=== PATIENT | female | born 1985 | race African-American/Black ===

== ENCOUNTER 2018-06-24 17:11 | Emergency (ER) | payer SELFPAY ==
[~2018-06-24] VITALS: Ht 170.2 cm; Wt 59.0 kg
--- NOTE | 2018-06-24 18:26 | Diagnostic Imaging Report ---
EXAMINATION: CHEST 2 VIEWS INDICATION: Cough. Fever COMPARISON: None FINDINGS: TUBES and LINES: None. LUNGS: Lungs are well inflated. Perihilar peribronchial hazy opacity could be due to bronchitis. There is no evidence of pneumonia or pulmonary edema. PLEURA: No pleural effusion or pneumothorax. HEART AND MEDIASTINUM: The cardiomediastinal silhouette is unremarkable. BONES AND SOFT TISSUES: No acute osseous lesion. Soft tissues are unremarkable. UPPER ABDOMEN: No free air under the diaphragm. IMPRESSION: Perihilar peribronchial hazy opacity could be due to bronchitis. Signed by: Dr. Johnny Smyth M.D. on 06/24/2018 6:23 PM
[2018-06-24] MEDS ORDERED: AZITHROMYCIN250 MG PO (20:02)
== END 2018-06-24 20:35 | disposition home or self-care (01) ==
LOC: ER 17:11
DX: R05 Cough (principal); J20.9 Acute bronchitis, unspecified; F17.210 Nicotine dependence, cigarettes, uncomplicated
CPT/HCPCS: 71046; 87400; 99283

== ENCOUNTER 2019-03-08 21:42 | Emergency (ER) | payer OTHER ==
[~2019-03-08] VITALS: Ht 170.2 cm; Wt 59.0 kg
[~2019-03-08 21:42] MED LIST: AZITHROMYCIN250 MG PO
--- OUTSIDE RECORDS SUMMARY | 2019-03-08 21:45 | XMS REPORT ---
Author Author [facility] Address Unknown Phone Unavailable Care Team Providers Care Photovoltaic Technician Name Role Phone Dilshad LYLES Unavailable Unavailable Payers Payer Name Policy Type Policy Number Effective Date Expiration Date Problems This patient has no known problems. Allergies, Adverse Reactions, Alerts Allergy Name Allergy Type Status Severity Reaction(s) Onset Date Inactive Date Treating Clinician Comments No Known Allergies DA Active U 2018-11-05 00:00:00 No Known Allergies DA Active U 2015-10-09 00:00:00 Medications This patient has no known medications. Results Test Description Test Time Test Comments Text Results Atomic Results Result Comments HCG SERUM BETA 2018-12-26 16:02:00 HCG SERUM BETA (test code=HCG) 865934.0 mIU/mL 0-3 Interfering substances present in the serum of somepatients may cause a false-positive result in this assay.Questionable elevations in serum hCG should be confirmedwith a urine hCG. Suspected Trophoblastic Neoplasms shouldnot be diagnosed based on serun hCG/beta hCG alone. Theymust be confirmed by clinical history and tissue diagnosis.INTERPRETATION:B-HCG LEVELS <5 SHOULD BE CONSIDERED "NEGATIVE." *WHEN BODERLINE RESULTS ARE ENCOUNTERED,PATIENT SAMPLESSHOULD BE REDRAWN 48 HOURS. 0-1 WEEKS AFTER CONCEPTION 5-50 MIU/ML1-2 WEEKS AFTER CONCEPTION 50-500 MIU/ML2-3 WEEKS AFTER CONCEPTION 100 -5,000 MIU/ML3-4 WEEKS AFTER CONCEPTION 500-10,000 MIU/ML4-5 WEEKS AFTER CONCEPTION 1000 -50,000 MIU/ML5-6 WEEKS AFTER CONCEPTION 10,000-100,000 MIU/ML6-8 WEEKS AFTER CONCEPTION 15,000- 200,000 MIU/ML2-3 MONTHS AFTER CONCEPTION 10,000-100,000 MIU/ML URINALYSIS [id number] 15:23:00* Test Item Value Reference Range Comments UA COLOR (test code=COLU) YELLOW YELLOW UA APPEARANCE (test code=APPU) CLEAR CLEAR UA GLUCOSE DIPSTICK (test code=DGLUU) NEGATIVE mg/dL NEGATIVE UA BILIRUBIN DIPSTICK (test code=BILU) NEGATIVE mg/dL NEGATIVE UA KETONE DIPSTICK (test code=KETU) NEGATIVE mg/dL NEGATIVE UA SPECIFIC GRAVITY (test code=SGU) 1.028 1.001-1.035 UA BLOOD DIPSTICK (test code=ECHO) 0.06 mg/dL (1+) mg/dL NEGATIVE UA PH DIPSTICK (test code=MARA) 6.0 5.0-8.0 UA PROTEIN DIPSTICK (test code=PROU) 20 (Trace) mg/dL NEGATIVE UA UROBILINIOGEN DIPSTICK (test code=URO) Normal mg/dL NEGATIVE UA NITRITE DIPSTICK (test code=PREETI) NEGATIVE NEGATIVE UA LEUKOCYTE ESTERASE W REFLEX (test code=LEUUR) NEGATIVE López/uL NEGATIVE UA WBC (test code=WBCU) 0-5 per HPF 0-5 UA RBC (test code=RBCU) 0-2 #/HPF 0-5 UA EPITHELIAL CELLS (test code=EPIU) FEW per HPF FEW UA BACTERIA (test code=BACU) FEW #/HPF NONE UA MUCUS (test code=MUCU) MODERATE #/LPF FEW Urine Source? Clean CatchURINALYSIS [id number] 15:20:00* Test Item Value Reference Range Comments UA COLOR (test code=COLU) YELLOW YELLOW UA APPEARANCE (test code=APPU) CLEAR CLEAR UA GLUCOSE DIPSTICK (test code=DGLUU) NEGATIVE mg/dL NEGATIVE UA BILIRUBIN DIPSTICK (test code=BILU) NEGATIVE mg/dL NEGATIVE UA KETONE DIPSTICK (test code=KETU) NEGATIVE mg/dL NEGATIVE UA SPECIFIC GRAVITY (test code=SGU) 1.028 1.001-1.035 UA BLOOD DIPSTICK (test code=ECHO) 0.06 mg/dL (1+) mg/dL NEGATIVE UA PH DIPSTICK (test code=MARA) 6.0 5.0-8.0 UA PROTEIN DIPSTICK (test code=PROU) 20 (Trace) mg/dL NEGATIVE UA UROBILINIOGEN DIPSTICK (test code=URO) Normal mg/dL NEGATIVE UA NITRITE DIPSTICK (test code=PREETI) NEGATIVE NEGATIVE UA LEUKOCYTE ESTERASE W REFLEX (test code=LEUUR) NEGATIVE López/uL NEGATIVE UA WBC (test code=WBCU) per HPF 0-5 UA RBC (test code=RBCU) per HPF 0-5 UA EPITHELIAL CELLS (test code=EPIU) per HPF Few UA BACTERIA (test code=BACU) per HPF NONE Urine Source? Clean CatchCHEST 2 [id number] 18:22:00 [place] [id number] Patient Name: CYNTHIA WING MR #: [id number] : 1985 Age/Sex: 32/F Req #: [id number] Adm Physician: Ordered by: CHILO LYLES MD Report #: [id number] Location: ER Room/Bed: Procedure: [id number] DX/ CHEST 2 VIEWS Exam Date: Exam Time: REPORT STATUS: Signed EXAMINATION: CHEST 2 EWS INDICATION: Cough. Fever COMPARISON: None FINDINGS: TUBES and LINES: None. LUNGS: Lungs are well inflated. Ciara hilar peribronchial hazy opacity could be due to bronchitis. There is no bethany dence of pneumonia or pulmonary edema. PLEURA: No pleural effusion or pneu mothorax. HEART AND MEDIASTINUM: The cardiomediastinal silhouette is unrem arkable. BONES AND SOFT TISSUES: No acute osseous lesion. Soft tissue s are unremarkable. UPPER ABDOMEN: No free air under the diaphragm. IMPRESSION: Perihilar peribronchial hazy opacity could be due to bronchit is. Signed by: Dr. Johnny Smyth M.D. on 06/24/2018 6:23 PM Dicta iqra By: JOHNNY SMYTH MD, MD 22 COPY TO: PARVEEN LYLES MD
[2019-03-08 23:27] LABS: BASOPHILS % 0.3 % (0.0-1.0); EOSINOPHILS # (AUTO) 0.1 (0.0-0.4); EOSINOPHILS % 0.8 % (0.0-6.0); HEMATOCRIT 29.8 % (34.2-44.1); HEMOGLOBIN 9.7 g/dL (12.0-16.0); LYMPHOCYTES # (AUTO) 2.2 (1.0-3.2); LYMPHOCYTES % 29.3 % (18.0-39.1); MEAN CORPUSCULAR HEMOGLOBIN 31.4 pg (28-32); MEAN CORPUSCULAR HGB CONC 32.6 g/dL (31-35); MEAN CORPUSCULAR VOLUME 96.4 fL (81-99); MONOCYTES # (AUTO) 0.6 (0.2-0.8); MONOCYTES % 7.7 % (4.4-11.3); NEUTROPHILS # (AUTO) 4.5 (2.1-6.9); NEUTROPHILS % 61.2 % (38.7-80.0); PLATELET COUNT 162 x10e3/uL (140-360); RED BLOOD COUNT 3.09 x10e6/uL (3.6-5.1); RED CELL DISTRIBUTION WIDTH 14.3 % (11.7-14.4)
[2019-03-08 23:47] LABS: ALANINE AMINOTRANSFERASE 7 IU/L (0-55); ALBUMIN 3.1 g/dL (3.5-5.0); ALBUMIN/GLOBULIN RATIO 0.9 (0.8-2.0); ALKALINE PHOSPHATASE 42 IU/L (40-150); ANION GAP 12.5 mmol/L (8-16); BLOOD UREA NITROGEN 7 mg/dL (7-26); BUN/CREATININE RATIO 12 (6-25); CALCIUM 8.7 mg/dL (8.4-10.2); CARBON DIOXIDE 22 mmol/L (22-29); CHLORIDE 105 mmol/L (98-107); EST GLOMERULAR FILTRATION RATE > 60 ML/MIN (60-); GLUCOSE 82 mg/dL (74-118); POTASSIUM 3.5 mmol/L (3.5-5.1); SODIUM 136 mmol/L (136-145)
[2019-03-09 00:04] LABS: BILIRUBIN,URINE NEGATIVE (NEGATIVE); CLARITY,URINE CLEAR (CLEAR); COLOR,URINE YELLOW (YELLOW); KETONES,URINE NEGATIVE (NEGATIVE); LEUKOCYTE ESTERASE ,URINE NEGATIVE (NEGATIVE); NITRITE,URINE NEGATIVE (NEGATIVE); PROTEIN,URINE DIPSTICK NEGATIVE (NEGATIVE); URINE UROBILINOGEN 0.2 mg/dL (0.2 - 1)
[2019-03-09 00:18] LABS: RBC,URINE 0-5 /HPF (0-5); WBC,URINE (MAN) 0-5 /HPF (0-5)
[2019-03-09 00:19] LABS: BACTERIA,URINE FEW /HPF; EPITHELIAL CELLS,URINE FEW /LPF
--- NOTE | 2019-03-09 01:30 | Diagnostic Imaging Report ---
EXAM: US OB GOMEZ 1 OR MORE FETUSES DATE: 03/08/2019 12:00 AM Time stamp on exam: 11:35 PM INDICATION: 18 WEEKS GESTATION, LOWER ABD PAIN COMPARISON: None TECHNIQUE: Multiple transabdominal images of the uterus and fetus were obtained using montemayor-scale, color Doppler and M-mode. FINDINGS: Estimated due date 08/10/2019. Type of Gestation: [place] Measurements: BPD 4 cm 18w 0d HC 14.7 cm 17w 6d AC 11.8 cm 17w 4d FL 2.6 cm 17w 6d Estimated Weight: 206.76 g, (7 oz) 36.1% Limited Anatomy evaluation: Four chamber cardiac view not obtained Regular cardiac rhythm No evidence of placental previa. There is no funneling of the internal os. size is appropriate for gestational age. Position: Breech Placental Location: Anterior Cervical Length: 3.4 cm Amniotic Fluid Index: 10.2 cm Heart Rate: 148 bpm Distance of placental tip to cervical os: 4.4 cm Small bilateral ovarian cysts measure up to 2.6 cm. IMPRESSION: Single living intrauterine without abnormality identified although this is exam did not include a detailed anatomy survey. Recommend follow-up dedicated imaging center. Estimated age 17 weeks 6 days. Signed by: Jose Cameron DO on 03/09/2019 1:27 AM
[2019-03-09 01:55] VITALS: BP 115/77
== END 2019-03-09 02:04 | disposition home or self-care (01) ==
LOC: ER 21:42
DX: O26.892 Other specified pregnancy related conditions, second trimester (principal); M54.5 Low back pain; R10.2 Pelvic and perineal pain
CPT/HCPCS: 36415; 76815; 80053; 81001; 85025; 99283